=== PATIENT | female | born 1955 | race African-American/Black ===

== ENCOUNTER 2017-05-05 00:46 | Inpatient (IN) | payer MEDICAID, SELFPAY ==
[2017-05-05] VITALS (9 sets, daily range): BP systolic 114–160; BP diastolic 70–89; PULSE 85–106; RESP 18–24; TEMP 36.8–37.5; O2SAT 90–99; BMI 29.0; BMI 25.0
--- NOTE | 2017-05-05 02:05 | HMH.EDGENADL ---
ED Disposition Clinical Impression: Pleural effusion Congestive heart failure Qualifiers: Congestive heart failure type: unspecified Congestive heart failure chronicity: acute Qualified Code(s): I50.9 - Heart failure, unspecified Acute bronchitis Qualifiers: Bronchitis organism: unspecified organism Qualified Code(s): J20.9 - Acute bronchitis, unspecified Disposition: Still a Patient Condition on Discharge: Fair - Critical Care Critical Care Time: No Attestation: On , the high probability of a clinically significant, sudden or life threatening deterioration of the following system(s) required my full and direct attention, intervention and personal management. The time I documented below is in addition to time spent performing reported procedures but includes the following listed in this critical care notation. Medical Decision Making Vital Signs: 05/05/17 00:48 Temperature 98.5 F Temperature Source Oral Pulse Rate [Brachial] 85 Respiratory Rate 20 Blood Pressure [Right Arm] 160/79 Blood Pressure Mean [Right Arm] 106 Blood Pressure Source [Right Arm] Automatic Cuff Blood Pressure Position [Right Arm] Supine 02 Sat by Pulse Oximetry 94 L Oxygen Delivery Method Room Air - Lab Data Lab Results 05/05/17 02:13: Influenza Type A Ag Negative, Influenza Type B Ag Negative 05/05/17 02:50: WBC 13.2 H, RBC 4.01 L, Hgb 10.6 L, Hct 34.7 L, MCV 86.5, MCH 26.6 L, MCHC 30.7 L, RDW 16.3, Plt Count 265, MPV 8.7, Neut % (Auto) 76.2, Lymph % (Auto) 18.8, [place] % (Auto) 3.6, Eos % (Auto) 1.2, Baso % (Auto) 0.3, Neut # (Auto) 10.0 H, Lymph # (Auto) 2.5, [place] # (Auto) 0.5, Eos # (Auto) 0.2, Baso # (Auto) 0.0 05/05/17 02:50: Sodium 137, Potassium 4.0, Chloride 99, Carbon Dioxide 29, Anion Gap 13.0, BUN 10, Creatinine 1.04 H, Estimated Creat Clear 49, Estimated GFR 54 L, Est GFR ( Amer) > 60, Glucose 108 H, Calcium 8.1 L, Total Bilirubin 0.2, AST 27, ALT 27, Alkaline Phosphatase 89, Total Protein 7.2, Albumin 2.5 L, Globulin 4.7 H, Albumin/Globulin Ratio 0.5 L 05/05/17 02:50: Lactic Acid 0.7 05/05/17 02:50: B-Natriuretic Peptide 639 H 05/05/17 02:50: Total Creatine Kinase 307 H, CK-MB (CK-2) 9.6 H*, CK-MB (CK-2) Rel Index 3.1, Troponin I 0.03 Result diagrams: 05/05/17 02:50 05/05/17 02:50 Orders (Tests/Meds): ED MEDICATIONS Generic Name Dose Route Start Last Admin Trade Name Freq PRN Reason Stop Dose Admin Ceftriaxone Sodium 1 gm/ 50 mls @ 100 mls/hr 05/05/17 04:32 Sodium Chloride IV 05/05/17 05:01 ONCE ONE Sodium Chloride 10 ml 05/05/17 02:37 Saline Flush 10ml Syringe IV 06/04/17 02:36 NEEDED PRN Maintain IV Site Discontinued Medications Generic Name Dose Route Start Last Admin Trade Name Freq PRN Reason Stop Dose Admin Azithromycin 500 mg/ Sodium 250 mls @ 250 mls/hr 05/05/17 04:32 Chloride IV 05/05/17 04:33 ONCE ONE ORDERS Category Date Time Status XR chest 2V Stat Exams 05/05/17 02:11 Taken ECG Request by /Nse Stat Y 05/05/17 02:38 Ordered - Radiology Data #1 Image(s): Chest Image Reviewed: Yes I reviewed the patient's radiology results X-ray interpreted by Eusebio Morris M.D.: Cardiomegaly and vascular congestion. Right pleural effusion. Questionable small left pleural effusion. No old x-rays for comparison. - ECG Data Tracing #1 EKG interpreted by Eusebio Morris MD: Rhythm: sinus Rate: 87 [place]: normal Ectopy: none Conduction: normal ST Segment Changes: none T Wave Changes: none Q Waves: none No evidence of acute ischemia or injury Baseline artifact present, but I consider the EKG adequate for accurate interpretation. - Isaac Inquiry Pt receiving controlled substance: No Medical Decision Making Narrative: I discussed the patient's pleural effusion with her. She is a poor historian and is not certain whether she has been diagnosed with this in the past or whether she has been diagnosed with
--- NOTE | 2017-05-05 02:11 | XR_ITS ---
XR chest 2V HISTORY: Cough, weakness, smoker ITS.REASON: cough ORDERING PHYSICIAN: Eusebio Morris MD PATIENT AGE: 61 years COMPARISON: None available FINDINGS: Cardiomegaly with pulmonary venous congestion. There is a small right pleural effusion. No obvious interstitial or alveolar edema or pneumonia. No acute bony anomalies. IMPRESSION: Congestive heart failure with small right effusion.
[2017-05-05 03:13] LABS: Basophils % 0.3 % (0.1-2.0); Eosinophils # 0.2 K/mm3 (0.0-0.4); Eosinophils % 1.2 % (0.1-12.0); Hematocrit 34.7 % (37.0-47.0); Hemoglobin 10.6 g/dL (12.2-16.2); Lymphocytes # 2.5 K/mm3 (0.7-4.5); Lymphocytes % 18.8 K/mm3 (10-50); Mean Corpuscular HGB Conc 30.7 g/dL (31.8-35.4); Mean Corpuscular Hemoglobin 26.6 pg (27.0-31.2); Mean Corpuscular Volume 86.5 fl (81-99); Mean Platelet Volume 8.7 fl (7.4-10.4); Monocytes # 0.5 K/mm3 (0.1-1.0); Monocytes % 3.6 % (1.7-9.3); Neutrophils % 76.2 % (37.0-80.0); Platelet Count 265 K/mm3 (142-424); Red Blood Count 4.01 M/mm3 (4.20-5.40); Red Cell Distribution Width 16.3 % (11.5-17.5); White Blood Count 13.2 K/mm3 (4.8-10.8)
[2017-05-05 03:27] LABS: Alanine Aminotransferase 27 U/L (12-78); Albumin Level 2.5 gm/dL (3.4-5.0); Albumin/Globulin Ratio 0.5 (1.1-1.8); Alkaline Phosphatase 89 U/L (46-116); Aspartate Amino Transferase 27 U/L (15-37); Bilirubin,Total 0.2 mg/dL (0.2-1.0); Blood Urea Nitrogen 10 mg/dL (7-18); Calcium 8.1 mg/dL (8.5-10.1); Carbon Dioxide 29 mmol/L (21.0-32.0); Chloride 99 mmol/L (98-107); Creatinine Clearance Estimated 49 mL/min (0-300); Creatinine,Serum 1.04 mg/dL (0.55-1.02); Estimated Glomerular Filt Rate 54 ml/min (>60); GFR (African American) > 60 ML/MIN (>60); Globulin 4.7 gm/dl (1.3-3.2); Glucose 108 mg/dL (74-106); Sodium 137 mmol/L (136-145); Total Protein,Serum 7.2 gm/dL (6.4-8.2)
[2017-05-05 03:28] LABS: Lactic Acid 0.7 mmol/L (0.4-2.0)
[2017-05-05 03:39] LABS: CKMB Relative Index 3.1 U/L (0-4.0); Creatine Kinase 307 U/L (26-192); Troponin I 0.03 ng/ml (0.00-0.06)
[2017-05-05 03:41] LABS: Creatine Kinase MB 9.6 mg/ml (0.0-3.6)
--- NOTE | 2017-05-05 03:43 | PC.NURSE ---
CRITICAL LAB VALUE CALLED FROM PHARMACY. CKMB=9.6. DR RODRIGUEZ AWARE
--- NOTE | 2017-05-05 03:52 | PC.NURSE ---
DR ARIZMENDI COVERING FOR SERVICE PAGED
--- NOTE | 2017-05-05 04:14 | PC.NURSE ---
DR ARIZMENDI PAGED AGAIN
--- NOTE | 2017-05-05 04:21 | PC.NURSE ---
DR SANTOYO COVERING FOR DR KYLEIGH SINGH
--- NOTE | 2017-05-05 04:26 | PC.NURSE ---
CASE DISCUSSED WITH DR SANTOYO BY DR RODRIGUEZ. TO BE ADMITTED TO [facility] TO [facility] WITH DX PLEURAL EFFUSION, CHF AND BRONCHITIS TO ROOM 209
--- NOTE | 2017-05-05 06:31 | PC.NURSE ---
PT LIVES AT [facility] AND USES THEIR PHARMACY.
--- NOTE | 2017-05-05 06:57 | PC.NURSE ---
Pt does not have computer or internet. Not interested. Brochure given
--- NOTE | 2017-05-05 07:23 | PC.NURSE ---
Report given to Ana Miller WC/SRNA
--- NOTE | 2017-05-05 08:19 | HMH.HP ---
*Admission Date: 05/05/17 *Chief complaint: Cold *History of present illness: The patient is not responding this morning, therefore HPI is taken from the ER note. The patient arrived via ambulance with papers from [facility]. The patient is a poor historian. No prior visits here. She complains of a bad cold for the past 2 days. She has a productive cough, green sputum. She has rhinorrhea and says that she feels like her face is swollen. No documented fevers. Denies earache but says she has chronic problems with her left ear. She has not had a flu shot this year, states that she does not take flu shots or pneumonia shots. She is a smoker. She states that she has lived in [place] for 3 years, previous to that, she lived in [facility]. She says that her current primary care provider is a visiting physician who she actually saw yesterday and she says that the physician put her on an antibiotic and an inhaler for her current illness. Her PCP is listed as Viridiana Umaña. She says that a staff member nata told her that she should come to the hospital. [facility] History Medical History: Reports:: Congestive Heart Failure, Hypertension Denies:: Cancer, Diabetes Mellitus Type 1, Diabetes Mellitus Type 2, MRSA Other Medical History: Reports: Sickle Cell Disease Laterality Cases: Left: Total Hip Replacement Other Surgeries: No: Pacemaker Amputation: No Fractures: No - *Social History Educational Level: Attended High School Smoking Status: Current every day smoker Tobacco Type: cigarettes # Packs/Day (cigarettes): 1 Alcohol Intake: never Occupational Status: unemployed, disabled Housing: assisted living facility Household Members: other - Psychiatric History Expresses thoughts of harming self/others: None Suicide Plan Description: No Plan *Family Hx:: Unable to obtain Review of Systems - Review of Systems Review of systems:: unable to obtain Meds Home Medications Medication Instructions Recorded Confirmed Type Amlodipine Besylate [Norvasc 5mg 5 mg PO DAILY 05/05/17 05/05/17 History tablet] Aspirin [Aspirin 81mg chewable 81 mg PO DAILY 05/05/17 05/05/17 History tab] Hydralazine HCl 100 mg PO TID 05/05/17 05/05/17 History risperiDONE [Risperdal] 3 mg PO BID 05/05/17 05/05/17 History Allergies Allergy/AdvReac Type Severity Reaction Status Date / Time No Known Allergies Allergy Verified 05/05/17 00:58 Exam Vital signs and Labs for Last 24 Hours: Temp Pulse Resp BP Pulse Ox 99.2 F 89 24 147/89 90 L 05/05/17 06:01 05/05/17 06:01 05/05/17 06:01 05/05/17 06:01 05/05/17 06:01 Comments: Patient lethargic this am, she is snoring and I am unable to wake her - *Routine HEENT Exam Head: Present: normocephalic, atraumatic Eye: Present: PERRL ENT: Present: mucous membranes dry - *Routine Neck Exam Present: supple - *Routine Respiratory Exam Present: rhonchi, wheezes, diminished air movement - *Routine Cardiovascular Exam Present: RRR - *Routine Abdominal Exam Present: soft, normoactive bowel sounds - *Routine Extremities Exam Absent: edema - *Routine Skin Exam Present: intact - *Routine Neurological Exam Present: altered mental status H&P: Result - Labs Labs: Lab Results 05/05/17 02:13: Influenza Type A Ag Negative, Influenza Type B Ag Negative 05/05/17 02:50: WBC 13.2 H, RBC 4.01 L, Hgb 10.6 L, Hct 34.7 L, MCV 86.5, MCH 26.6 L, MCHC 30.7 L, RDW 16.3, Plt Count 265, MPV 8.7, Neut % (Auto) 76.2, Lymph % (Auto) 18.8, [place] % (Auto) 3.6, Eos % (Auto) 1.2, Baso % (Auto) 0.3, Neut # (Auto) 10.0 H, Lymph # (Auto) 2.5, [place] # (Auto) 0.5, Eos # (Auto) 0.2, Baso # (Auto) 0.0 05/05/17 02:50: Sodium 137, Potassium 4.0, Chloride 99, Carbon Dioxide 29, Anion Gap 13.0, BUN 10, Creatinine 1.04 H, Estimated Creat Clear 49, Estimated GFR 54 L, Est GFR ( Amer) > 60, Glucose 108 H, Calcium 8.1 L, Total Bilirubin 0.2, AST 27, ALT 27, Alkal
--- NOTE | 2017-05-05 08:22 | P.HP_ITS ---
*Admission Date: 05/05/17 *Chief complaint: Cold *History of present illness: The patient is not responding this morning, therefore HPI is taken from the ER note. The patient arrived via ambulance with papers from [facility]. The patient is a poor historian. No prior visits here. She complains of a bad cold for the past 2 days. She has a productive cough, green sputum. She has rhinorrhea and says that she feels like her face is swollen. No documented fevers. Denies earache but says she has chronic problems with her left ear. She has not had a flu shot this year, states that she does not take flu shots or pneumonia shots. She is a smoker. She states that she has lived in [place] for 3 years, previous to that, she lived in [facility]. She says that her current primary care provider is a visiting physician who she actually saw yesterday and she says that the physician put her on an antibiotic and an inhaler for her current illness. Her PCP is listed as Viridiana Umaña. She says that a staff member nata told her that she should come to the hospital. [facility] History Medical History: Reports:: Congestive Heart Failure, Hypertension Denies:: Cancer, Diabetes Mellitus Type 1, Diabetes Mellitus Type 2, MRSA Other Medical History: Reports: Sickle Cell Disease Laterality Cases: Left: Total Hip Replacement Other Surgeries: No: Pacemaker Amputation: No Fractures: No - *Social History Educational Level: Attended High School Smoking Status: Current every day smoker Tobacco Type: cigarettes # Packs/Day (cigarettes): 1 Alcohol Intake: never Occupational Status: unemployed, disabled Housing: assisted living facility Household Members: other - Psychiatric History Expresses thoughts of harming self/others: None Suicide Plan Description: No Plan *Family Hx:: Unable to obtain Review of Systems - Review of Systems Review of systems:: unable to obtain Meds Home Medications Medication Instructions Recorded Confirmed Type Amlodipine Besylate [Norvasc 5mg 5 mg PO DAILY 05/05/17 05/05/17 History tablet] Aspirin [Aspirin 81mg chewable 81 mg PO DAILY 05/05/17 05/05/17 History tab] Hydralazine HCl 100 mg PO TID 05/05/17 05/05/17 History risperiDONE [Risperdal] 3 mg PO BID 05/05/17 05/05/17 History Allergies Allergy/AdvReac Type Severity Reaction Status Date / Time No Known Allergies Allergy Verified 05/05/17 00:58 Exam Vital signs and Labs for Last 24 Hours: Temp Pulse Resp BP Pulse Ox 99.2 F 89 24 147/89 90 L 05/05/17 06:01 05/05/17 06:01 05/05/17 06:01 05/05/17 06:01 05/05/17 06:01 Comments: Patient lethargic this am, she is snoring and I am unable to wake her - *Routine HEENT Exam Head: Present: normocephalic, atraumatic Eye: Present: PERRL ENT: Present: mucous membranes dry - *Routine Neck Exam Present: supple - *Routine Respiratory Exam Present: rhonchi, wheezes, diminished air movement - *Routine Cardiovascular Exam Present: RRR - *Routine Abdominal Exam Present: soft, normoactive bowel sounds - *Routine Extremities Exam Absent: edema - *Routine Skin Exam Present: intact - *Routine Neurological Exam Present: altered mental status H&P: Result - Labs Labs: Lab Results 05/05/17 02:13: Influenza Type A Ag Negative, Influenza Type B Ag Negative 05/05/17 02:50: WBC 13
[2017-05-05 09:37] LABS: Basophils % 0.4 % (0.1-2.0); Eosinophils # 0.2 K/mm3 (0.0-0.4); Hematocrit 36.6 % (37.0-47.0); Lymphocytes # 1.8 K/mm3 (0.7-4.5); Lymphocytes % 17.4 K/mm3 (10-50); Mean Corpuscular Hemoglobin 27.8 pg (27.0-31.2); Mean Corpuscular Volume 86.8 fl (81-99); Mean Platelet Volume 8.7 fl (7.4-10.4); Monocytes # 0.3 K/mm3 (0.1-1.0); Monocytes % 2.8 % (1.7-9.3); Neutrophils # 7.9 K/mm3 (1.8-7.8); Neutrophils % 77.3 % (37.0-80.0); Platelet Count 282 K/mm3 (142-424); Red Blood Count 4.22 M/mm3 (4.20-5.40); White Blood Count 10.2 K/mm3 (4.8-10.8)
[2017-05-05 09:48] LABS: Hemoglobin 11.5 g/dL (12.2-16.2)
[2017-05-05 10:05] LABS: Anion Gap 12.9 mEq/L (5-15); Blood Urea Nitrogen 9 mg/dL (7-18); CKMB Relative Index 2.9 U/L (0-4.0); Carbon Dioxide 30 mmol/L (21.0-32.0); Chloride 100 mmol/L (98-107); Creatine Kinase 297 U/L (26-192); Creatinine Clearance Estimated 49 mL/min (0-300); Creatinine,Serum 1.04 mg/dL (0.55-1.02); Estimated Glomerular Filt Rate 54 ml/min (>60); GFR (African American) > 60 ML/MIN (>60); Glucose 98 mg/dL (74-106); Potassium 3.9 mmoL/L (3.5-5.1); Sodium 139 mmol/L (136-145); Troponin I < 0.02 ng/ml (0.00-0.06)
[2017-05-05 10:07] LABS: Creatine Kinase MB 8.5 mg/ml (0.0-3.6)
--- NOTE | 2017-05-05 11:30 | P.CONPHA_ITS ---
[facility] Pharmacy VTE Monitoring - Patient Demographics Admission date: 05/05/17 Report Date: 05/05/17 Time: 11:29 Allergies/Adverse Reactions: No Known Allergies Allergy (Verified 05/05/17 00:58) Height: 1.47 m Weight: 54.459 kg Patient Problems: Current Active Problems Pleural effusion (Acute) Congestive heart failure (Acute) Acute bronchitis (Acute) Sickle cell anemia (Acute) Hypertension (Acute) - VTE Risk Labs: VTE Related Lab Results Hgb 11.5 g/dL (12.2-16.2) L 05/05/17 09:30 Hct 36.6 % (37.0-47.0) L 05/05/17 09:30 Plt Count 282 K/mm3 (142-424) 05/05/17 09:30 BUN 9 mg/dL (7-18) 05/05/17 09:30 Creatinine 1.04 mg/dL (0.55-1.02) H 05/05/17 09:30 Estimated Creat Clear 49 mL/min (0-300) 05/05/17 09:30 - Prophylaxis Types of VTE Prophylaxis: TEDS Knee High - VTE Diagnosis Confirmed Comment: JENNY CRONIN ORDERED
[2017-05-06 04:00] VITALS: BP 114/70; BP 116/68; PULSE 80; RESP 18; TEMP 36.8; O2SAT 95
[2017-05-06 06:36] LABS: Basophils % 0.3 % (0.1-2.0); Eosinophils # 0.2 K/mm3 (0.0-0.4); Eosinophils % 1.4 % (0.1-12.0); Hematocrit 32.6 % (37.0-47.0); Lymphocytes # 2.5 K/mm3 (0.7-4.5); Lymphocytes % 23.9 K/mm3 (10-50); Mean Corpuscular Hemoglobin 26.3 pg (27.0-31.2); Mean Corpuscular Volume 87.4 fl (81-99); Mean Platelet Volume 8.4 fl (7.4-10.4); Monocytes # 0.4 K/mm3 (0.1-1.0); Monocytes % 3.8 % (1.7-9.3); Neutrophils # 7.5 K/mm3 (1.8-7.8); Neutrophils % 70.7 % (37.0-80.0); Platelet Count 256 K/mm3 (142-424); Red Blood Count 3.72 M/mm3 (4.20-5.40); Red Cell Distribution Width 16.5 % (11.5-17.5); White Blood Count 10.5 K/mm3 (4.8-10.8)
--- NOTE | 2017-05-06 06:40 | PC.NURSE ---
DENIES PAIN THIS SHIFT. AMBULATES TO BR X1 ASSIST. TOLERATING 3L O2 NC WELL. VSS. RHONCH AND EX WHEEZES NOTED DURING LUNG AUSCULTATION. BS ACTIVE IN ALL 4 QAUDS. NO ACUTE DISTRESS NOTED. WILL CONTINUE TO MONITOR.
[2017-05-06 06:43] LABS: Hemoglobin 9.8 g/dL (12.2-16.2)
[2017-05-06 06:55] LABS: Alanine Aminotransferase 18 U/L (12-78); Albumin Level 2.3 gm/dL (3.4-5.0); Albumin/Globulin Ratio 0.5 (1.1-1.8); Alkaline Phosphatase 76 U/L (46-116); Anion Gap 8.2 mEq/L (5-15); Aspartate Amino Transferase 13 U/L (15-37); Bilirubin,Total 0.2 mg/dL (0.2-1.0); Blood Urea Nitrogen 9 mg/dL (7-18); Calcium 7.9 mg/dL (8.5-10.1); Carbon Dioxide 34 mmol/L (21.0-32.0); Chloride 103 mmol/L (98-107); Creatinine Clearance Estimated 49 mL/min (0-300); Creatinine,Serum 1.04 mg/dL (0.55-1.02); Estimated Glomerular Filt Rate 54 ml/min (>60); GFR (African American) > 60 ML/MIN (>60); Globulin 4.2 gm/dl (1.3-3.2); Glucose 98 mg/dL (74-106); Potassium 4.2 mmoL/L (3.5-5.1); Sodium 141 mmol/L (136-145); Total Protein,Serum 6.5 gm/dL (6.4-8.2)
--- NOTE | 2017-05-06 07:23 | PC.NURSE ---
REPORT GIVEN TO Ana ZELAYA WC/SRNA
[2017-05-06 08:00] VITALS: BP 141/73; PULSE 86; RESP 20; TEMP 36.7; O2SAT 95
--- NOTE | 2017-05-06 08:13 | PC.NURSE ---
REPORT GIVEN TO Cruz MEDINA RN
--- NOTE | 2017-05-06 09:34 | P.PN_ITS ---
Internal Medicine - PN: Subj *Date: 05/06/17 *Time: 09:30 Interval history: Patient has no new complaints today, she feels a little better. Nursing staff reports patient slept a lot yesterday and she refused several of her medication doses. Exam Vital signs and Labs for Last 24 Hours: Temp Pulse Resp BP Pulse Ox 98.1 F 86 20 141/73 95 05/06/17 08:00 05/06/17 08:00 05/06/17 08:00 05/06/17 08:00 05/06/17 08:00 Laboratory Results - last 24 hr 05/05/17 09:30: WBC 10.2, RBC 4.22, Hgb 11.5 L, Hct 36.6 L, MCV 86.8, MCH 27.8, MCHC 32.0, RDW 17.0, Plt Count 282, MPV 8.7, Neut % (Auto) 77.3, Lymph % (Auto) 17.4, [place] % (Auto) 2.8, Eos % (Auto) 2.0, Baso % (Auto) 0.4, Neut # (Auto) 7.9 H, Lymph # (Auto) 1.8, [place] # (Auto) 0.3, Eos # (Auto) 0.2, Baso # (Auto) 0.0 05/05/17 09:30: Sodium 139, Potassium 3.9, Chloride 100, Carbon Dioxide 30, Anion Gap 12.9, BUN 9, Creatinine 1.04 H, Estimated Creat Clear 49, Estimated GFR 54 L, Est GFR ( Amer) > 60, Glucose 98, Total Creatine Kinase 297 H, CK-MB (CK-2) 8.5 H*, CK-MB (CK-2) Rel Index 2.9, Troponin I < 0.02 05/06/17 06:05: WBC 10.5, RBC 3.72 L, Hgb 9.8 L D, Hct 32.6 L, MCV 87.4, MCH 26.3 L, MCHC 30.0 L, RDW 16.5, Plt Count 256, MPV 8.4, Neut % (Auto) 70.7, Lymph % (Auto) 23.9, [place] % (Auto) 3.8, Eos % (Auto) 1.4, Baso % (Auto) 0.3, Neut # (Auto) 7.5, Lymph # (Auto) 2.5, [place] # (Auto) 0.4, Eos # (Auto) 0.2, Baso # (Auto) 0.0 05/06/17 06:05: Sodium 141, Potassium 4.2, Chloride 103, Carbon Dioxide 34 H, Anion Gap 8.2, BUN 9, Creatinine 1.04 H, Estimated Creat Clear 49, Estimated GFR 54 L, Est GFR ( Amer) > 60, Glucose 98, Calcium 7.9 L, Total Bilirubin 0.2, AST 13 L D, ALT 18 D, Alkaline Phosphatase 76, Total Protein 6.5 , Albumin 2.3 L, Globulin 4.2 H, Albumin/Globulin Ratio 0.5 L 05/06/17 06:05: B-Natriuretic Peptide 190 H I & O for Last 24 hours: Intake & Output 05/03/17 05/04/17 05/05/17 05/06/17 11:59 11:59 11:59 11:59 Intake Total 0 / 0 780 / 780 Output Total Balance 0 / 0 779 / 779 - Constitutional no acute distress (conversant) - *Routine Respiratory Exam Present: decreased breath sounds (in bases) - *Routine Cardiovascular Exam Present: RRR Assessment and Plan (1) Acute bronchitis Current visit: Yes Status: Acute Qualifiers: Bronchitis organism: unspecified organism Qualified Code(s): J20.9 - Acute bronchitis, unspecified Category: Medical Code(s): J20.9 - Acute bronchitis, unspecified (2) Congestive heart failure Current visit: Yes Status: Acute Qualifiers: Congestive heart failure type: unspecified Congestive heart failure chronicity: acute Qualified Code(s): I50.9 - Heart failure, unspecified Category: Medical Code(s): I50.9 - Heart failure, unspecified (3) Hypertension Current visit: Yes Status: Acute Category: Medical Code(s): I10 - Essential (primary) hypertension (4) Pleural effusion Current visit: Yes Status: Acute Category: Medical Code(s): J90 - Pleural effusion, not elsewhere classified (5) Sickle cell anemia Current visit: Yes Status: Acute Category: Medical Code(s): D57.1 - Sickle -cell disease without crisis - Assessment and plan all Dx Assessment and Plan for all problems:: Patient improving, await ECHO, probable discharge tomorrow.
[2017-05-06 10:09] LABS: Adenovirus,PCR Not Detected (NotDetected); Bordetella Pertussis Not Detected (NotDetected); Chlamydophila Pneumoniae, PCR Not Detected (NotDetected); Coronavirus 229E Not Detected (NotDetected); Coronavirus NL63 Not Detected (NotDetected); Coronavirus OC43 Not Detected (NotDetected); Coronovirus HKU1,PCR Not Detected (NotDetected); Human Metapneumovirus Not Detected (NotDetected); Influenza A, PCR Not Detected (NotDetected); Influenza AH1, 2009 Not Detected (NotDetected); Influenza AH1, PCR Not Detected (NotDetected); Influenza AH3,PCR Not Detected (NotDetected); Influenza B, PCR Not Detected (NotDetected); Mycoplasma Pneumoniae, PCR Not Detected (NotDected); Parainfluenza 1, PCR Not Detected (NotDetected); Parainfluenza 2, PCR Not Detected (NotDetected); Parainfluenza 3, PCR Not Detected (NotDetected); Parainfluenza 4, PCR Not Detected (NotDetected); Respiratory Syncytial Virus Not Detected (NotDetected); Rhinovirus/Enterovirus Not Detected (NotDetected)
[2017-05-06 16:00] VITALS: BP 124/71; PULSE 90; RESP 20; TEMP 37.1; O2SAT 100
[2017-05-06 20:00] VITALS: BP 129/64; PULSE 87; TEMP 36.8; O2SAT 92
[2017-05-06 21:05] VITALS: O2SAT 92
--- NOTE | 2017-05-07 03:44 | PC.NURSE ---
NO COMPLAINTS STATED THIS SHIFT. 3LNC TOLERATED WELL. PRODUCTIVE COUGH NOTED WITH GREEN CREAMY SPUTUM. LUNG SOUNDS CLEAR T/O AUSCULTATION. ATTEMPTED TO GET OOB W/O NOTIFYING STAFF FOR ASSISTANCE. PT REMAINED A&OX3. APPLIED SAFETY DEVICE UPON RETURN TO BED R/T UNSTEADY GAIT. VSS. WILL CONTINUE TO MONITOR.
[2017-05-07 04:00] VITALS: BP 146/86; PULSE 92; RESP 20; TEMP 36.7; O2SAT 98
--- NOTE | 2017-05-07 06:04 | CA_ITS ---
PROCEDURE: 2-D M-mode and color Doppler study INDICATIONS FOR THE TEST: Chest pain COPD Heart Murmur Tobacco Smoking+ Palpitations Fatigue Syncope Edema Hypertension+Diabetes Mellitus Rheumatic Fever SOB+BAXTER Obesity Hyperlipidemia Family History HD Additional History sickle cell anemia PATIENT INFORMATION HEIGHT:58 WEIGHT:120 GENDER: Female B/P:147/89 2-D/M-MODE INTERPRETATION: 2-D MEASUREMENTS OBSERVED VALUES IN CMS Right Ventricular Dimension (RVDd) 3.0 Interventricular Septum (Thickness)(IVsd) 1.2 Left Ventricular Internal Dimensions(LVIDd) 4.8 Left Ventricular Posterior Wall (Thickness)(LVPWd) 0.9 Aortic Root 2.9 Aortic Cusp Separation 1.9 Left Atrial Dimensions (LAD) 3.7 2D 1. Left atrium is mildly enlarged, left ventricle is normal size, there is mild concentric left ventricular hypertrophy, visually estimated ejection fraction 55% with no obvious regional wall motion abnormality. 2. The right atrium is mildly enlarged, right ventricle is normal size and contractility. 3. The aortic valve is minimally thickened and fibrosed. 4. The mitral and tricuspid valve leaflets are minimally thickened. 5. The pulmonic valve is poorly visualized. 6. There is small circumferential pericardial effusion noted. DOPPLER INTERROGATION: Doppler interrogation of the aortic, mitral and tricuspid valvular presence of mild mitral and tricuspid regurgitation, calculated right ventricular systolic pressure is 74 mmHg consistent with severe pulmonary hypertension, grade 1 diastolic dysfunction seen with tissue Doppler evidence of raised left atrial pressure. CONCLUSION: 1. Biatrial enlargement, normal left ventricular size, mild concentric left ventricular hypertrophy, visually estimated ejection fraction 55% with no obvious regional wall motion abnormality. Grade 1 diastolic dysfunction seen with tissue Doppler evidence of raised left atrial pressure. 2. Mild mitral and tricuspid regurgitation, calculated right ventricular systolic pressure 74 mmHg consistent with severe pulmonary hypertension 3. Small circumferential pericardial effusion noted.
--- NOTE | 2017-05-07 07:19 | PC.NURSE ---
REPORT GIVEN TO Juan BARLOW
--- NOTE | 2017-05-07 07:35 | PC.NURSE ---
REPORT GIVEN TO Molly DORAN RN AT THIS TIME
[2017-05-07 08:19] VITALS: BP 133/68; PULSE 88; RESP 20; TEMP 36.7; O2SAT 93
--- NOTE | 2017-05-07 08:59 | P.PN_ITS ---
Internal Medicine - PN: Subj *Date: 05/07/17 *Time: 08:57 Interval history: Patient has no new complaints today, she feels a little better. ECHO was just done. Still on supplemental O2. Exam Vital signs and Labs for Last 24 Hours: Temp Pulse Resp BP Pulse Ox 98.1 F 88 20 133/68 93 L 05/07/17 08:19 05/07/17 08:19 05/07/17 08:19 05/07/17 08:19 05/07/17 08:19 Laboratory Results - last 24 hr 05/06/17 10:00: Chlamy pneumoniae PCR Not detected, Adenovirus (PCR) Not detected, B.parapertussis DNA PCR Not detected, Coronavirus OC43 (PCR) Not detected, Coronavirus HKU1 (PCR) Not detected, Coronavirus 229E (PCR) Not detected, Coronavirus NL63 (PCR) Not detected, Human Metapneumovir PCR Not detected, Influenza A (H1) PCR Not detected, Influ A (H1N1/09) PCR Not detected , Influenza A (H3) PCR Not detected, Influenza Type A (PCR) Not detected, Influenza Type B (PCR) Not detected, M. pneumoniae (PCR) Not detected, Parainfluenza 1 (PCR) Not detected, Parainfluenza 2 (PCR) Not detected, Parainfluenza 3 (PCR) Not detected, Parainfluenza 4 (PCR) Not detected, RSV (PCR ) Not detected, Entero/Rhino (PCR) Not detected I & O for Last 24 hours: Intake & Output 05/04/17 05/05/17 05/06/17 05/07/17 11:59 11:59 11:59 11:59 Intake Total 0 / 0 780 / 780 490 / 490 Output Total Balance 0 / 0 779 / 779 487 / 487 - Constitutional no acute distress - *Routine HEENT Exam ENT: Present: mucous membranes moist - *Routine Respiratory Exam Comments: Better air movement, slightly diminished in the bases. - *Routine Cardiovascular Exam Present: RRR Assessment and Plan (1) Acute bronchitis Current visit: Yes Status: Acute Qualifiers: Bronchitis organism: unspecified organism Qualified Code(s): J20.9 - Acute bronchitis, unspecified Category: Medical Code(s): J20.9 - Acute bronchitis, unspecified (2) Congestive heart failure Current visit: Yes Status: Acute Qualifiers: Congestive heart failure type: unspecified Congestive heart failure chronicity: acute Qualified Code(s): I50.9 - Heart failure, unspecified Category: Medical Code(s): I50.9 - Heart failure, unspecified (3) Hypertension Current visit: Yes Status: Acute Category: Medical Code(s): I10 - Essential (primary) hypertension (4) Pleural effusion Current visit: Yes Status: Acute Category: Medical Code(s): J90 - Pleural effusion, not elsewhere classified (5) Sickle cell anemia Current visit: Yes Status: Acute Category: Medical Code(s): D57.1 - Sickle -cell disease without crisis - Assessment and plan all Dx Assessment and Plan for all problems:: Repeat CXR today await ECHO report.
--- NOTE | 2017-05-07 08:59 | XR_ITS ---
XR chest 2V HISTORY: Congestive heart failure, follow-up effusions ITS.REASON: Pleural effusion ORDERING PHYSICIAN: Turner Patino MD PATIENT AGE: 61 years COMPARISON: 05/05/2017 FINDINGS: There is cardiomegaly with pulmonary venous congestion consistent with congestive heart failure. Small right pleural effusion has resolved. Mild right basilar atelectasis There is a small left pleural effusion noted. Old left sixth rib fracture. IMPRESSION: 1. No change CHF. 2. Improved right effusion with mild right basilar atelectasis 3. Small left pleural effusion now noted
--- NOTE | 2017-05-07 11:26 | PC.NURSE ---
05/06/17 documentation from Downtime documentation forms for Maegan Valdez RN per Tianna Chance RN
--- NOTE | 2017-05-07 11:53 | PC.NURSE ---
PT IS RESTING IN BED AT THIS TIME, VERY PLEASANT AND COOPERATIVE. PT'S ROOM AIR SATURATION WAS ONLY 85% AT REST THIS MORNING. PT HAS BEEN AMBULATING TO THE BATHROOM. LUNGS SOUNDS DIMINISHED, BOWEL SOUNDS NORMAL, WILL CONTINUE TO MONITOR.
[2017-05-07 15:55] VITALS: BP 127/62; PULSE 84; RESP 20; TEMP 36.9; O2SAT 95
--- NOTE | 2017-05-07 17:28 | PC.NURSE ---
Downtime EMAR documentation from 05/06/17 from Downtime documentation forms from Cruz Valdez RN per Tianna Chance RN. Scribing per Tianna Chance RN.
--- NOTE | 2017-05-07 17:55 | SW/DCPLANNER ---
Patient resides at [facility] in [facility]. I have made multiple attempts to contact the [facility] along with contacting businesses near in hopes to retrieve a telephone number. I have spoke with patients and patients number and still have no received a working number or a phone number that belongs to the [facility]. I am needing to speak with them regarding this patient discharging back with home o2. Room air was checked this evening and patient was at 94%. Nurse will continue to check vitals throughout the nights. If sat remains in 90's patient will not need o2 at time of discharge unless ordered by MD.
--- NOTE | 2017-05-07 18:07 | PC.NURSE ---
PT GOT OOB TO AMBULATE TO THE BATHROOM AFTER BEING OFF OXYGEN FOR 15 MIN. HER O2 SATURATION WAS 94% ON RT PULSE OXIMETER.
[2017-05-07 21:04] VITALS: BP 139/80; PULSE 83; RESP 16; TEMP 37.4; O2SAT 100
--- NOTE | 2017-05-08 04:29 | PC.NURSE ---
NO ACUTE CHANGES NOTED. PT HAS NOT C/O ANY PAIN OR DISCOMFORT. LUNGS NOTED TO HAVE WHEEZING T/O AND SCATTERED RHONCHI. V/S HAVE REMAINED STABLE. PT IS CURRENTLY ON ROOM AIR AT THIS TIME. BS ACTIVE. PT HAS HAD LOOSE STOOLS THIS SHIFT. NO OTHER CONCERNS AT THIS TIME. WILL CONTINUE TO MONITOR.
[2017-05-08 04:45] VITALS: BP 145/80; PULSE 88; RESP 16; TEMP 37.2; O2SAT 99
[2017-05-08 06:22] VITALS: O2SAT 100
[2017-05-08 06:51] VITALS: O2SAT 100
[2017-05-08 06:53] LABS: Basophils % 0.3 % (0.1-2.0); Eosinophils # 0.2 K/mm3 (0.0-0.4); Eosinophils % 1.3 % (0.1-12.0); Hemoglobin 10.3 g/dL (12.2-16.2); Lymphocytes # 2.1 K/mm3 (0.7-4.5); Lymphocytes % 18.8 K/mm3 (10-50); Mean Corpuscular HGB Conc 31.2 g/dL (31.8-35.4); Mean Corpuscular Hemoglobin 26.1 pg (27.0-31.2); Mean Corpuscular Volume 83.8 fl (81-99); Mean Platelet Volume 8.9 fl (7.4-10.4); Monocytes # 0.4 K/mm3 (0.1-1.0); Monocytes % 3.6 % (1.7-9.3); Neutrophils # 8.4 K/mm3 (1.8-7.8); Platelet Count 299 K/mm3 (142-424); Red Blood Count 3.93 M/mm3 (4.20-5.40); Red Cell Distribution Width 16.3 % (11.5-17.5)
[2017-05-08 07:05] LABS: Anion Gap 10.5 mEq/L (5-15); Blood Urea Nitrogen 13 mg/dL (7-18); Carbon Dioxide 38 mmol/L (21.0-32.0); Chloride 99 mmol/L (98-107); Creatinine Clearance Estimated 52 mL/min (0-300); Creatinine,Serum 0.97 mg/dL (0.55-1.02); Estimated Glomerular Filt Rate 58 ml/min (>60); GFR (African American) 71 ML/MIN (>60); Glucose 92 mg/dL (74-106); Potassium 4.5 mmoL/L (3.5-5.1); Sodium 143 mmol/L (136-145)
--- NOTE | 2017-05-08 07:52 | PC.NURSE ---
REPORT HANDOFF TO Scar NIELSEN
--- NOTE | 2017-05-08 07:55 | PC.NURSE ---
PT REPORT HANDOFF TO MAGO DORAN
--- NOTE | 2017-05-08 08:22 | P.PN_ITS ---
Internal Medicine - PN: Subj *Date: 05/08/17 *Time: 09:01 Interval history: Patient has no new complaints today, she feels a little better. ECHO was just done. Still on supplemental O2. Exam Vital signs and Labs for Last 24 Hours: Temp Pulse Resp BP Pulse Ox 98.9 F 88 16 145/80 100 05/08/17 04:45 05/08/17 04:45 05/08/17 04:45 05/08/17 04:45 05/08/17 06:51 Laboratory Results - last 24 hr 05/08/17 06:05: WBC 11.0 H, RBC 3.93 L, Hgb 10.3 L, Hct 33.0 L, MCV 83.8, MCH 26.1 L, MCHC 31.2 L, RDW 16.3, Plt Count 299, MPV 8.9, Neut % (Auto) 76.0, Lymph % (Auto) 18.8, [place] % (Auto) 3.6, Eos % (Auto) 1.3, Baso % (Auto) 0.3, Neut # (Auto) 8.4 H, Lymph # (Auto) 2.1, [place] # (Auto) 0.4, Eos # (Auto) 0.2, Baso # (Auto) 0.0 05/08/17 06:05: Sodium 143, Potassium 4.5, Chloride 99, Carbon Dioxide 38 H, Anion Gap 10.5, BUN 13 D, Creatinine 0.97, Estimated Creat Clear 52, Estimated GFR 58 L, Est GFR ( Amer) 71, Glucose 92 I & O for Last 24 hours: Intake & Output 05/05/17 05/06/17 05/07/17 05/08/17 11:59 11:59 11:59 11:59 Intake Total 0 / 0 780 / 780 1090 / 1090 1600 / 1600 Output Total 3 / 1500 / 1500 Balance 0 / 0 779 / 779 1087 / 1087 100 / 100 Narrative: states she has no breathing problems and is ready to go home. Denies cough, CP and SOB; eating well; has ambulated in the room; on RA - Constitutional no acute distress - *Routine Respiratory Exam Present: rhonchi (bilaterally) - *Routine Cardiovascular Exam Present: RRR - *Routine Abdominal Exam Present: soft, normoactive bowel sounds. Absent: tenderness, distended - *Routine Extremities Exam Present: full ROM. Absent: edema, calf tenderness Assessment and Plan (1) Acute bronchitis Current visit: Yes Status: Acute Qualifiers: Bronchitis organism: unspecified organism Qualified Code(s): J20.9 - Acute bronchitis, unspecified Category: Medical Code(s): J20.9 - Acute bronchitis, unspecified (2) Congestive heart failure Current visit: Yes Status: Acute Qualifiers: Congestive heart failure type: unspecified Congestive heart failure chronicity: acute Qualified Code(s): I50.9 - Heart failure, unspecified Category: Medical Code(s): I50.9 - Heart failure, unspecified (3) Hypertension Current visit: Yes Status: Acute Category: Medical Code(s): I10 - Essential (primary) hypertension (4) Pleural effusion Current visit: Yes Status: Acute Category: Medical Code(s): J90 - Pleural effusion, not elsewhere classified (5) Sickle cell anemia Current visit: Yes Status: Acute Category: Medical Code(s): D57.1 - Sickle -cell disease without crisis (6) Pulmonary hypertension Current visit: Yes Status: Acute Category: Medical Code(s): I27.20 - Pulmonary hypertension, unspecified PATIENT WITH ABNORMAL ECHO, WILL NEED OUTPATIENT FOLLOW UP WITH PULMONOLOGY THROUGH HER PRIMARY MD - Assessment and plan all Dx Assessment and Plan for all problems:: Seems ready for discharge today. See discharge orders
[2017-05-08 08:30] VITALS: BP 122/65; PULSE 84; RESP 20; TEMP 37.2; O2SAT 100
[2017-05-08 08:51] VITALS: O2SAT 100
--- NOTE | 2017-05-08 12:00 | SW/DCPLANNER ---
I have contacted [facility] and spoke with Janene to transport this patient. Janene stated that they will be able to pick this patient up but can not give a time. I have also made contact with Macie MORENO to go to the [facility] and have an employee contact me. Nurse (Lauren) has called and stated that they can accept this patient back. [facility] phone: [phone] Nurse (Lauren) cell: [phone]
--- NOTE | 2017-05-08 15:20 | PC.NURSE ---
I AM DOCUMENTING INFORMATION PROVIDED BY MARCO PINEDA ON DOWNTIME FORMS ON 05/06/17.
--- NOTE | 2017-05-08 18:26 | HMH.DCSUM ---
General - General Admission date: 05/05/17 <Sharonda Brunson - 05/08/17 18:34> Discharge date: 05/08/17 <RafaelSharonda gan - 05/08/17 18:34> HPI HPI: The patient is not responding this morning, therefore HPI is taken from the ER note. The patient arrived via ambulance with papers from [facility]. The patient is a poor historian. No prior visits here. She complains of a bad cold for the past 2 days. She has a productive cough, green sputum. She has rhinorrhea and says that she feels like her face is swollen. No documented fevers. Denies earache but says she has chronic problems with her left ear. She has not had a flu shot this year, states that she does not take flu shots or pneumonia shots. She is a smoker. She states that she has lived in [place] for 3 years, previous to that, she lived in [facility]. She says that her current primary care provider is a visiting physician who she actually saw yesterday and she says that the physician put her on an antibiotic and an inhaler for her current illness. Her PCP is listed as Viridiana Umaña. She says that a staff member nata told her that she should come to the hospital. <BoySharonda - 05/08/17 18:34> Objective Vital signs: Temp Pulse Resp BP Pulse Ox 98.9 F 84 20 122/65 100 05/08/17 08:30 05/08/17 08:30 05/08/17 08:30 05/08/17 08:30 05/08/17 08:51 <Turner Patino - 05/09/17 08:39> Temp Pulse Resp BP Pulse Ox 98.9 F 84 20 122/65 100 05/08/17 08:30 05/08/17 08:30 05/08/17 08:30 05/08/17 08:30 05/08/17 08:51 <Sharonda Brunson - 05/08/17 18:34> Narrative: Gen: Patient lethargic this am, she is snoring and I am unable to wake her - *Routine HEENT Exam Head: Present: normocephalic, atraumatic Eye: Present: PERRL ENT: Present: mucous membranes dry - *Routine Neck Exam Present: supple - *Routine Respiratory Exam Present: rhonchi, wheezes, diminished air movement - *Routine Cardiovascular Exam Present: RRR - *Routine Abdominal Exam Present: soft, normoactive bowel sounds - *Routine Extremities Exam Absent: edema - *Routine Skin Exam Present: intact - *Routine Neurological Exam Present: altered mental status <Sharonda Brunson - 05/08/17 18:34> Hospital Course Hospital Course: A CXR showed CHF with a right pleural effusion. She was diuresed and started on zithromax and rocephin. A respiratory panel was ordered as well, it was negative. An echo was ordered as well as a repeat CXR. The CXR showed no change in her CHF, improved right pleural effusion, but development of a left pleural effusion. Her echo showed an EF of 55% with biatrial enlargement, normal left ventricular size, mild concentric left ventricular hypertrophy, and grade 1 diastolic dysfunction. It also showed mild mitral and tricuspid regurgitation and a calculated right ventricular systolic pressure 74 mmHg consistent with severe pulmonary hypertension and a pericardial effusion was noted. She improved throughout her stay and was able to ambulate around the room. Her breathing returned to normal and she was stable to be discharged. <Sharonda Brunson - 05/08/17 18:34> Results Labs on day of discharge: Labs from last 24 hours 05/08/17 05/08/17 06:05 06:05 WBC 11.0 H RBC 3.93 L Hgb 10.3 L Hct 33.0 L MCV 83.8 MCH 26.1 L MCHC 31.2 L RDW 16.3 Plt Count 299 MPV 8.9 Neut % (Auto) 76.0 Lymph % (Auto) 18.8 [place] % (Auto) 3.6 Eos % (Auto) 1.3 Baso % (Auto) 0.3 Neut # (Auto) 8.4 H Lymph # (Auto) 2.1 [place] # (Auto) 0.4 Eos # (Auto) 0.2 Baso # (Auto) 0.0 Sodium 143 Potassium 4.5 Chloride 99 Carbon Dioxide 38 H Anion Gap 10.5 BUN 13 D Creatinine 0.97 Estimated Creat Clear 52 Estimated GFR 58 L Est GFR ( Amer) 71 Glucose 92 <Sharonda Brunson - 05/08/17 18:34> DS: Diagnosis - Discharge Diagnosis (1) Congestive heart failure
--- NOTE | 2017-05-08 18:34 | P.DS_ITS ---
General - General Admission date: 05/05/17 <Sharonda Brunson - 05/08/17 18:34> Discharge date: 05/08/17 <RafaelSharonda gan - 05/08/17 18:34> HPI HPI: The patient is not responding this morning, therefore HPI is taken from the ER note. The patient arrived via ambulance with papers from [facility]. The patient is a poor historian. No prior visits here. She complains of a bad cold for the past 2 days. She has a productive cough, green sputum. She has rhinorrhea and says that she feels like her face is swollen. No documented fevers. Denies earache but says she has chronic problems with her left ear. She has not had a flu shot this year, states that she does not take flu shots or pneumonia shots. She is a smoker. She states that she has lived in [place] for 3 years, previous to that, she lived in [facility]. She says that her current primary care provider is a visiting physician who she actually saw yesterday and she says that the physician put her on an antibiotic and an inhaler for her current illness. Her PCP is listed as Viridiana Umaña. She says that a staff member nata told her that she should come to the hospital. <BoySharonda - 05/08/17 18:34> Objective Vital signs: Temp Pulse Resp BP Pulse Ox 98.9 F 84 20 122/65 100 05/08/17 08:30 05/08/17 08:30 05/08/17 08:30 05/08/17 08:30 05/08/17 08:51 <Turner Patino - 05/09/17 08:39> Temp Pulse Resp BP Pulse Ox 98.9 F 84 20 122/65 100 05/08/17 08:30 05/08/17 08:30 05/08/17 08:30 05/08/17 08:30 05/08/17 08:51 <Sharonda Brunson - 05/08/17 18:34> Narrative: Gen: Patient lethargic this am, she is snoring and I am unable to wake her - *Routine HEENT Exam Head: Present: normocephalic, atraumatic Eye: Present: PERRL ENT: Present: mucous membranes dry - *Routine Neck Exam Present: supple - *Routine Respiratory Exam Present: rhonchi, wheezes, diminished air movement - *Routine Cardiovascular Exam Present: RRR - *Routine Abdominal Exam Present: soft, normoactive bowel sounds - *Routine Extremities Exam Absent: edema - *Routine Skin Exam Present: intact - *Routine Neurological Exam Present: altered mental status <Sharonda Brunson - 05/08/17 18:34> Hospital Course Hospital Course: A CXR showed CHF with a right pleural effusion. She was diuresed and started on zithromax and rocephin. A respiratory panel was ordered as well, it was negative. An echo was ordered as well as a repeat CXR. The CXR showed no change in her CHF, improved right pleural effusion, but development of a left pleural effusion. Her echo showed an EF of 55% with biatrial enlargement, normal left ventricular size, mild concentric left ventricular hypertrophy, and grade 1 diastolic dysfunction. It also showed mild mitral and tricuspid regurgitation and a calculated right ventricular systolic pressure 74 mmHg consistent with severe pulmonary hypertension and a pericardial effusion was noted. She improved throughout her stay and was able to ambulate around the room. Her breathing returned to normal and she was stable to be discharged. <RafaelSharonda gan - 05/08/17 18:34> Results Labs on day of discharge: Labs from last 24 hours 05/08/17 05/08/17 06:05 06:05 WBC 11.0 H RBC 3.93 L Hgb 10.3 L Hct 33.0 L MCV 83.8 MCH 26.1 L MCHC 31.2 L RDW 16.3
== END 2017-05-08 13:33 | disposition home or self-care (01) | DRG 293 ==
LOC: ER 04:36 → 2ND 13:57
PROVIDERS: Physician Assistant; Admitting Provider Family Medicine; Emergency Provider Emergency Medicine; Visit Provider Family Medicine
DX: I50.9 Heart failure, unspecified (principal); D57.1 Sickle-cell disease without crisis; Z72.0 Tobacco use; I10 Essential (primary) hypertension
CPT/HCPCS: 36415; 71046; 80048; 80053; 82550; 82553; 83605; 83880; 84484; 85025; 87040; 87275; 87276; 87486; 87581; 87633; 87798; 93005; 93041; 93306; 96365; 96367; 99284; J0456